=== PATIENT | male | born 1950 | race Caucasian/White ===

== ENCOUNTER 2017-01-03 10:54 | Emergency (ER) | payer OTHER ==
[~2017-01-03] VITALS: Ht 172.7 cm; Wt 89.8 kg
[2017-01-03 11:00] VITALS: BP_SYST 141
[2017-01-03] MEDS ORDERED: HYDROcodone/ACETAMIN 10-325 MG TAB PO ONE (11:30)
[2017-01-03] MEDS ORDERED: HYDROmorphone 1 MG INJ. 1 MG/ML AMPUL IM ONE (12:15)
[2017-01-03] MEDS ORDERED: ONDANSETRON 4 MG ODT TAB PO ONE (12:15)
[2017-01-03 12:50] VITALS: BP_SYST 128
== END 2017-01-03 12:50 | disposition home or self-care (01) ==
LOC: SED 10:54
DX: S43.402A Unspecified sprain of left shoulder joint, initial encounter (principal); W01.0XXA Fall on same level from slipping, tripping and stumbling without subsequent striking against object, initial encounter; Y93.89 Activity, other specified; Y92.89 Other specified places as the place of occurrence of the external cause; Y99.8 Other external cause status
CPT/HCPCS: 73030; 96372; 99284; J1170; Q0162